=== PATIENT | female | born 1990 | race Caucasian/White ===

== ENCOUNTER → 2019-07-27 | Outpatient (REF) ==
--- NOTE | 2019-07-27 11:07 | REP ---
Lumbar spine three views: There are no comparisons. Vertebral body heights, interspacing alignment are normal. There is no spondylolysis or spondylolisthesis. Mineralization is normal. The pedicles and facets are unremarkable. The sacroiliac articulations are unremarkable. Impression: Negative lumbar spine. Electronically Signed by Donte Plunkett MD 07/27/2019 10:59 A
== END ==
LOC: M SMT 09:56
PROVIDERS: ATTEND Internal Medicine
DX: Z02.71 Encounter for disability determination (principal)